=== PATIENT | female | born 1980 | race Caucasian/White ===

== ENCOUNTER → 2018-11-02 | Day surgery (SDC) | payer OTHER ==
[2018-10-30 10:29] LABS: BASOPHILS % 0.4 % (0.0-1.0); EOSINOPHILS % 0.9 % (0.0-6.0); HEMATOCRIT 39.5 % (34.2-44.1); HEMOGLOBIN 13.1 g/dL (12.0-16.0); LYMPHOCYTES # (AUTO) 1.7 (1.0-3.2); LYMPHOCYTES % 38.3 % (18.0-39.1); MEAN CORPUSCULAR HEMOGLOBIN 30.6 pg (28-32); MEAN CORPUSCULAR HGB CONC 33.2 g/dL (31-35); MEAN CORPUSCULAR VOLUME 92.3 fL (81-99); MONOCYTES # (AUTO) 0.2 (0.2-0.8); MONOCYTES % 5.1 % (4.4-11.3); NEUTROPHILS # (AUTO) 2.5 (2.1-6.9); NEUTROPHILS % 55.1 % (38.7-80.0); PLATELET COUNT 216 x10e3/uL (140-360); RED BLOOD COUNT 4.28 x10e6/uL (3.6-5.1); RED CELL DISTRIBUTION WIDTH 11.8 % (11.7-14.4)
[2018-10-30 10:43] LABS: BLOOD UREA NITROGEN 9 mg/dL (7-26); BUN/CREATININE RATIO 12 (6-25); CALCIUM 9.1 mg/dL (8.4-10.2); CARBON DIOXIDE 28 mmol/L (22-29); CHLORIDE 102 mmol/L (98-107); CREATININE, SERUM 0.75 mg/dL (0.57-1.11); EST GLOMERULAR FILTRATION RATE > 60 ML/MIN (60-); GLUCOSE 133 mg/dL (74-118); SODIUM 136 mmol/L (136-145)
[~2018-11-02] MED LIST: BUPIVACAINE 0.25%/EPI 30ML SDV INJ ONE; CEFAZOLIN SOD 1 GM VIAL ONE; CITALOPRAM HBR40 MG; DEXAMETHASONE SOD PHOS INJ 4 MG/ML VIAL ONE; EPHEDRINE SULFATE INJ 50 MG/10 ML SYR ONE; FENTANYL CITRATE/PF 100MCG/2 ML INJ ONE; LIDOCAINE HCL 1% LOCAL INJ 20 ML VIAL ONE; LIDOCAINE HCL 2% LOCAL INJ 5 ML SDV VIAL INJ ONE; MEPERIDINE HCL INJ 25 MG/ML VIAL ONE; MIDAZOLAM HCL 2 MG/2 ML VIAL ONE; NOVALOG; ONDANSETRON HCL INJ 2MG/ML 2ML 2 MG/ML VIAL ONE; PROPOFOL IV EMULSION 10 MG/ML 20 ML VIAL ONE; SYNTHROID75 MCG PO
[2018-11-02 10:50] VITALS: BP 120/73
--- OUTSIDE RECORDS SUMMARY | 2018-11-02 16:10 | XMS REPORT | Summary of Care ---
Author Author JOSE Hernandez, PING Organization Unknown Address Unknown Phone Unavailable Care Team Providers Care Rehabilitation Physician Name Role Phone Emily Rodriguez LVN Unavailable Unavailable PING GARCIA M.D. 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 * Start : 02-May-2012 Active Accu-Chek FastClix Lancets Check BG 8x a day * Quantity: 8 Refills: 3 JOSE Stephany.Kaleb., PING * Start : 04-May-2012 Active 102 Unit Box GlucaGen HypoKit 1 MG Injection Solution Reconstituted USE DIRECTED in case of severe hypoglycemia * Quantity: 1 Refills: 4 PING GARCIA M.D. * Start : 26-Nov-2012 Active Accu-Chek Guide In Vitro Strip USE TO CHECK BLOOD GLUCOSE 8 TIMES A DAY * Quantity: 8 Refills: 3 JOSE Stephany.PING Mckeon * Start : 31-Mar-2013 Active 100 Strip Box Dexcom G5 Mobile Transmitter KIT USE DIRECTED. * Quantity: 1 Refills: 11 JOSE Stephany.Kaleb.PING * Start : 07-Dec-2015 Active 1 Kit Box Womens Multi Oral Capsule * Refills: 0 JOSE Stephany.PING Mckeon * Start : 21-Mar-2016 Active Vitamin D3 1000 UNIT Oral Capsule * Refills: 0 JOSE M.PING Mckeon * Start : 21-Mar-2016 Active Citalopram Hydrobromide 40 MG Oral Tablet * Refills: 0 PING GARCIA M.D. * Start : 21-Nov-2017 Active NovoLOG 100 UNIT/ML Subcutaneous Solution 12MN=0.9; 4A=0.95; NN=1.2; 4P=1.2; 10P=0.95; ICR 1:6(MN) 1:6 (NN) CF 40; UP TO 80 UNITS A DAY * Quantity: 8 Refills: 1 PING GARCIA M.D. * Start : 30-Jul-2018 Active 10 ML Vial B-12 1000 MCG Sublingual Tablet Sublingual 1 a day Start 09-04-18 * Refills: 0 PING GARCIA M.D. 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: Resolved Procedures Procedure Dates Details History of Section Completed Immunization Name Dates Details Influenza on: 13-Jul-2012 Fluzone Quadrivalent 0.5 ML Intramuscular Suspension Prefilled Syringe Lot #: [id number] on: 24-May-2015 Family History Name Dates Details Family history of Hypothyroidism Status: Active Social History Name Dates Details - Status: Name Dates Details Never smoker Vital Signs Date Test Result Details :46 BP Systolic 130 mm[Hg] Status: BP Diastolic 70 mm[Hg] Status: [id number] BP Systolic 118 mm[Hg] Status: Comments: Location: RUE; Position: Sitting BP Diastolic 72 mm[Hg] Status: Comments: Location: RUE; Position: Sitting Weight 132 lb Status: Body Mass Index Calculated 23.38 kg/m2 Status: Body Surface Area Calculated 1.62 m2 Status: Heart Rate 73 /min Status: Results Date Description Value Details :10 Glucose (Point of Care In Office) Glucose POC [employer] 193 :11 [O] Hemoglobin A1c (in office) HEMOGLOBIN A1c 7.5 :12 [O] Lipid Panel (In Office) CHOLESTEROL, TOTAL 228 HDL CHOLESTEROL 120 TRIGLYCERIDES 75 LDL-CHOLESTEROL n/a NON HDL CHOLESTEROL n/a T. Chol/HDL Ratio n/a GLUCOSE 181 External QC Done? No :59 [QL] CMP W/EGFR Sodium Level 138 {mEq/l} Range: 135-145 Potassium Level 4.0 {mEq/l} Range: 3.5-5.1 Chloride Level 101 {mEq/l} Range: 95-109 Carbon Dioxide 30 {mEq/l} Range: 24-32 AGAP 11.0 {mEq/l} Range: 10.0-20.0 Glucose Lvl 183 mg/dl (Above high threshold) Range: 70-99 Comments: Adult reference range values reflect the clinical guidelinesof the [place] [employer]. Creatinine Lvl 0.80 mg/dl Range: 0.50-1.40 Blood Urea Nitrogen 9 mg/dl Range: 7-22 BUN/Creatinine Ratio 11 Range: 6-25 Total Protein 6.7 g/dl Range: 6.4-8.4 Albumin Lvl 3.9 g/dl Range: 3.5-5.0 Globulin 2.8 g/dl Range: 2.7-4.2 A/G Ratio 1.4 Range: 0.7-1.6 Calcium Level Total 8.9 mg/dl Range: 8.5-10.5 ALT 15 u/l Range: 0-65 AST 9 u/l Range: 0-37 Alk Phos 68 u/l Range: 39-136 Bili Total 0.4 mg/dl Range: 0.2-1.3 eGFR 96 {ML/MIN/1.7} Comments: The eGFR is calculated using the CKD-EPI formula. In most young, healthyindividuals the eGFR will be >90 mL/min/1.73m2. The eGFR declines with age. AneGFR of 60-89 may be normal in some populations, particularly the elderly, forwhom the CKD-EPI formula has not been extensively validated. Use of the eGFR isnot recommended in the following populations:Individuals with unstable creatinine concentrations, including patients and those with serious co-morbid conditions.Patients with extremes in muscle mass or diet.The data above are obtained from the National Kidney Disease Education Program(NKDEP) which additionally recommends that when the eGFR is used in patientswith extremes of body mass index for purposes of drug dosing, the eGFR shouldbe multiplied by the estimated BMI. :59 [[facility]] T4, FREE T4 Free 1.02 ng/dl Range: 0.76-1.46 :59 [[facility]] TSH, 3RD GENERATION TSH 0.849 {uIU/ml} Range: 0.360-3.740 :59 [[facility]] VITAMIN B12 Vitamin B12 Level 313 pg/ml Range: 254-1320 :59 [[facility]] MICROALBUMIN, RANDOM URINE (W/CREATININE) Urine Microalbumin 8.8 mg/L U Creatinine 71.40 mg/dl Comments: No established reference ranges. Urine Microalbuming Creatinine Ratio 12.3 {MCG/MG_CRE} Range: <=30.0 Plan of Care Name Dates Details Planned Observations Planned Goals not documented Planned Encounters Appointment; PING GARCIA M.D. On: 22-Dec-2018 11:00 Interventions Provided Medication Changes* Accu-Chek FastClix Lancets - Renew * Accu-Chek Guide In Vitro Strip - Renew Instructions Name Dates Details Instructions not documented Encounters Appointment; PING GARCIA M.D. Encounter Diagnosis: Problem not documented On: 22-Nov-2016 15:45 Appointment; PING GARCIA M.D. Encounter Diagnosis: Problem not documented On: 02-Jan-2017 11:00 Appointment; [address] Encounter Diagnosis: Problem not documented On: 29-Jan-2017 10:00 Appointment; [address]ART[address] Encounter Diagnosis: Problem not documented On: 05-Mar-2017 10:00 Appointment; PING GARCIA M.D. Encounter Diagnosis: Problem not documented On: 01-Apr-2017 11:00 Appointment; PING GARCIA M.D. Encounter Diagnosis: Problem not documented On: 07-May-2017 9:00 Appointment; PING GARCIA M.D. Encounter Diagnosis: Problem not documented On: 04-Jun-2017 9:00 Appointment; PING GARCIA M.D. Encounter Diagnosis: Problem not documented On: 19-Aug-2017 9:00 Appointment; PING GARCIA M.D. Encounter Diagnosis: Problem not documented On: 21-Nov-2017 12:00 Appointment; PING GARCIA M.D. Encounter Diagnosis: Problem not documented On: 18-Feb-2018 14:15 Appointment; PING GARCIA M.D. Encounter Diagnosis: Problem not documented On: 03-Sep-2018 15:45
--- NOTE | 2018-11-02 17:33 | Operative Report ---
DATE OF PROCEDURE: 11/02/2018 SURGEON: Shaheen Stevens MD PREOPERATIVE DIAGNOSIS: Right inguinal hernia. POSTOPERATIVE DIAGNOSIS: Right inguinal hernia. OPERATION PERFORMED: Repair of right inguinal hernia with large Prolene hernia system. SIDE SEAM ENVELOPE MACHINE OPERATOR: GERA De La Rosa. ANESTHESIA: General. COMPLICATIONS: None. ESTIMATED BLOOD LOSS: Minimal. PROCEDURE IN DETAIL: With the patient lying in bed in the supine position under good general anesthesia, the abdomen was prepped with Betadine solution and draped in the usual manner. A right inguinal incision was made, it was carried down through the subcutaneous tissue down to the external oblique aponeurosis. External oblique aponeurosis was then opened along the length of its fibers and the external inguinal ring was opened. The cord was then mobilized and retracted. Exploration of the cord at this point revealed a suspected hernia sac. The ligament and sac were then from the pubic tubercle and this was ligated with 2-0 Vicryl ties. The hernia was then dissected all the way down to its neck and then suture ligated with 2-0 silk and a 2-0 silk tie, the excess was resected and the remnant retracted back to the intraabdominal cavity without any difficulty. The preperitoneal space was then entered right through the internal ring and a pocket was created without any difficulty. A large Prolene hernia system was then placed in the preperitoneal space and the underlay patch was deployed without any problems. The overlay patch was then placed over the floor and sutured to the conjoined tendon and the inguinal ligament using interrupted sutures of 2-0 Vicryl. The layers were then infiltrated on the way out with solution of 0.25% Marcaine and 1% lidocaine mixed in equal parts. The external oblique aponeurosis was closed with a running suture of 2-0 Vicryl, the subcutaneous tissue was approximated with 3-0 plain, and the skin was closed with clips. A dressing was applied. The sponge, lap, and needle count was correct. The patient tolerated the procedure well and returned to the recovery room in stable condition. Shaheen Stevens MD JLR/MODL /[id number]
== END | disposition home or self-care (01) ==
LOC: OR 06:42
PROVIDERS: ATTEND Surgery
DX: K40.90 Unilateral inguinal hernia, without obstruction or gangrene, not specified as recurrent (principal); K66.8 Other specified disorders of peritoneum; E11.9 Type 2 diabetes mellitus without complications; E03.9 Hypothyroidism, unspecified; F41.9 Anxiety disorder, unspecified; Z01.812 Encounter for preprocedural laboratory examination; Z79.4 Long term (current) use of insulin; Z87.891 Personal history of nicotine dependence
CPT/HCPCS: 36415 ×2; 49505; 80048; 81025; 82948; 85025; 88302; 88342; 93005; C1781; J0690; J1100; J2001 ×2; J2175; J2250; J2405; J2704